=== PATIENT | female | born 1995 | race American Indian/Alaskan Native ===

== ENCOUNTER 2017-06-01 07:50 | Emergency (ER) | payer MEDICAID, OTHER ==
[2017-06-01 08:13] VITALS: BP 116/70
[2017-06-01] MEDS ORDERED: MOTRIN PO ONE (11:29)
[2017-06-01] MEDS ORDERED: ULTRAM PO ONE (11:29)
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
[2017-06-01 12:41] LABS: HCG Qualitative,Urine Negative (Negative)
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
--- NOTE | 2017-06-01 13:59 | XRay Report ---
RIGHT FOREARM: History: Right arm pain. AP and lateral views of the forearm demonstrate normal mineralization and contours for this patient's age. No destructive changes are noted and the adjacent soft tissues are normal. IMPRESSION: Normal right forearm.
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
--- NOTE | 2017-06-01 14:01 | XRay Report ---
LUMBOSACRAL SPINE, 3 VIEWS: History: Back pain Findings: The vertebral bodies, disk spaces and posterior elements are intact. No compression deformity or malalignment. The SI joints are symmetric and unremarkable. Impression: 1. No evidence for acute injury to the lumbar spine.
== END 2017-06-01 14:19 | disposition home or self-care (01) ==
LOC: ED 07:50
DX: S16.1XXA Strain of muscle, fascia and tendon at neck level, initial encounter (principal); M79.641 Pain in right hand; R51 Headache; V49.9XXA Car occupant (driver) (passenger) injured in unspecified traffic accident, initial encounter; Y93.89 Activity, other specified; Y99.8 Other external cause status; Y92.410 Unspecified street and highway as the place of occurrence of the external cause
CPT/HCPCS: 70450; 71110; 72040; 72100; 81025

== ENCOUNTER 2021-06-14 20:33 | Emergency (ER) | payer OTHER ==
[2021-06-14 20:37] VITALS: BP 120/84
[2021-06-14] MEDS ORDERED: diazePAM 5 MG TAB PO ONE (22:48)
[2021-06-14] MEDS ORDERED: IBUPROFEN 600 MG TAB PO ONE (22:48)
[2021-06-14] MEDS ORDERED: ACETAMINOPHEN 500 MG TAB PO ONE (22:48)
[2021-06-14] MEDS ORDERED: TETANUS,DIPH,PERTUSS(ACELL) VACCINE 0.5 ML SYRINGE IM ONE (22:49)
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
== END 2021-06-15 01:12 | disposition home or self-care (01) ==
LOC: ED 20:33
DX: S02.2XXA Fracture of nasal bones, initial encounter for closed fracture (principal); S63.501A Unspecified sprain of right wrist, initial encounter; S83.92XA Sprain of unspecified site of left knee, initial encounter; S00.83XA Contusion of other part of head, initial encounter; S09.90XA Unspecified injury of head, initial encounter; M62.838 Other muscle spasm; V89.2XXA Person injured in unspecified motor-vehicle accident, traffic, initial encounter; Y93.89 Activity, other specified; Y92.89 Other specified places as the place of occurrence of the external cause; Y99.8 Other external cause status
CPT/HCPCS: 70450; 70486; 72125; 90471; 90715; 96372; 99285